=== PATIENT | male | born 1960 | race Caucasian/White ===

== ENCOUNTER 2024-10-21 06:57 | Observation (INO) ==
[~2024-10-21 06:57] MED LIST: NS 0.45% 1000 ml BAG 1,000 ML IV SCH; Naloxone 0.4 mg VIAL 0.4 mg/ml 1 ml VIAL IV PRN; Ondansetron 4 mg VIAL 2 MG/ML 2 ml VIAL IV PRN; fentaNYL 100 mcg/2 ml 50 MCG/ML VIAL IV PRN
[2024-10-21 07:35] LABS: Rapid COVID-19 Molecular Undetected (Undetected)
[2024-10-21] MEDS ORDERED: Ondansetron 4 mg VIAL 2 MG/ML 2 ml VIAL ONE (08:50)
[2024-10-21] MEDS ORDERED: Propofol 10 MG/ML 20 ML BTL ONE (08:50)
[2024-10-21] MEDS ORDERED: Lidocaine 2% PF 5 ML VIAL ONE (08:50)
[2024-10-21] MEDS ORDERED: fentaNYL 100 mcg/2 ml 50 MCG/ML VIAL ONE ×2 (08:50→11:03)
[2024-10-21] MEDS ORDERED: Dexamethasone IV 4 MG/ML VIAL 1 ml VIAL ONE (08:50)
[2024-10-21] MEDS ORDERED: Midazolam 2 mg/2 ml VIAL 1 mg/ml 2 ml VIAL (2 mg) ONE (08:50)
[2024-10-21] MEDS ORDERED: Furosemide 20 mg/2 ml IV VIAL ONE (11:17)
[2024-10-21] MEDS ORDERED: BELLADONNA/OPIUM Rectal SUPP 1 EACH SUPP PR ONE (11:18)
[2024-10-21] MEDS: GENTAMICIN ADULT IVPB ONE (14:22)
[2024-10-21] MEDS: Buffered Lidocaine 1% SYRIN 1 ml INTRADERM ONE (14:22)
[2024-10-21] MEDS: Acetaminophen IV 1 GM/100ML 1,000 MG/100 ML BAG IV ONE (14:22)
[2024-10-21] MEDS: Lactated Ringers 1000 ml BAG 1,000 ML IV SCH (14:22)
[2024-10-21] MEDS: Ampicillin ADVAN 2 GM in NS 0.9% 100 ML 100 ML IVPB ONE (14:22)
[2024-10-21] MEDS: NS 0.9% IVPB ONE (14:22)
[2024-10-21] MEDS: NS 0.9% 1000 ml BAG 1,000 ML IV SCH (14:23)
[2024-10-21] MEDS: Magnesium Hydroxide LIQ 30 ML UDC PO SCH (14:44)
[2024-10-21] MEDS: Neomycin/Polym/Bacit TOP OINT 15 GM TOPICAL SCH (14:44)
[2024-10-21] MEDS: Calcium Carb (TUMS) 500 mg CHEW TAB PO SCH (20:27)
[2024-10-22] MEDS: Ondansetron 4 mg VIAL 2 MG/ML 2 ml VIAL IV PRN (02:41)
[2024-10-22 06:46] VITALS: BP 121/79
== END 2024-10-22 09:23 | disposition home or self-care (01) ==
LOC: SSU 06:57 → OR 06:57
PROVIDERS: ADMIT Urology; ATTEND Urology